=== PATIENT | male | born 1955 | race Caucasian/White ===

== ENCOUNTER 2016-12-16 08:47 | Outpatient (CLI) | payer OTHER ==
[2016-12-16] MEDS ORDERED: Iopamidol 370 76% 100 ML VIAL ONE (09:00)
--- NOTE | 2016-12-16 10:57 | CT ---
CT OF THE ABDOMEN ND PELVIS WITHOUT AND WITH CONTRAST: COMPARISON: None. HISTORY: Prostate cancer. Microhematuria. TECHNIQUE: Multiple contiguous axial images were obtained in a CTA of the abdomen and pelvis without and with I V contrast. Postcontrast images were obtained in the nephrographic and excretory phases. Coronal r eformats were performed. FINDINGS: There are subcentimeter hypodensities in the right kidney and liver which are too small to definitel y characterize but likely represent cysts. The gallbladder, left kidney, adrenal glands, spleen, an d pancreas are unremarkable. Both urinary collecting systems are normal in appearance without filli ng defects. The urinary bladder is unremarkable. The prostate is mildly enlarged. No calcificatio ns are seen in either kidney or along the course of the ureters. No free air, free fluid, or stranding changes are seen in the abdomen or pelvis. There are a few sc attered diverticula in the colon. The small bowel and appendix are unremarkable. No abdominal or p elvic lymphadenopathy are seen. The osseous structures and visualized pneumothorax are unremarkable. The abdominal wall soft tissue s are unremarkable. IMPRESSION: 1. No evidence of acute intraabdominal/pelvic abnormality. 2. Hepatic and right renal cysts. 3. Diverticulosis. POS: [facility]
== END 2016-12-16 08:48 | disposition home or self-care (01) ==
LOC: SCSCT 08:47
PROVIDERS: ATTEND Urology
DX: C61 Malignant neoplasm of prostate (principal); R31.29 Other microscopic hematuria; K76.89 Other specified diseases of liver; N28.1 Cyst of kidney, acquired; K57.90 Diverticulosis of intestine, part unspecified, without perforation or abscess without bleeding
CPT/HCPCS: 74178

== ENCOUNTER 2019-01-29 17:30 | Outpatient (CLI) | payer OTHER | END 2019-01-29 17:31 | disposition home or self-care (01) | LOC: SLEEPLAB 17:30 | PROVIDERS: ATTEND Family Medicine | DX: G47.33 Obstructive sleep apnea (adult) (pediatric) (principal); R53.83 Other fatigue; R40.0 Somnolence; R09.89 Other specified symptoms and signs involving the circulatory and respiratory systems; I10 Essential (primary) hypertension; R06.83 Snoring | CPT/HCPCS: 95806 ==

== ENCOUNTER 2025-02-13 09:00 | Emergency (ER) | payer MEDICARE ==
[2025-02-13 09:36] LABS: #Basophils Less than 0.03 10x3/uL (0.0-0.2); #Eosinophils Less than 0.03 10x3/uL (0.0-0.7); #Monocytes 0.42 10x3/uL (0.11-0.59); #Neutrophils 9.59 10x3/uL (1.40-6.50); %Basophils 0.1 % (0.0-1.0); %Eosinophils 0.0 % (0.0-10.0); %Lymphocytes 2.8 % (21.0-51.0); %Monocytes 4.1 % (0.0-10.0); %Neutrophils 92.8 % (42.0-75.0); Hematocrit 45.8 % (42.0-52.0); Hemoglobin 15.9 g/dL (14.0-18.0); Mean Corpuscular Hemoglobin 32.4 pg (27.0-31.0); Mean Corpuscular Volume 93.5 fL (78.0-98.0); Platelet Count 206 10x3/uL (130-400); Red Blood Cell (RBC) Count 4.90 mill/uL (4.70-6.10); White Blood Cell (WBC) Count 10.33 10x3/uL (4.8-10.8)
[2025-02-13 09:56] LABS: ALT (SGPT) 22 U/L (Less than 45); AST (SGOT) 28 U/L (11-34); Albumin 4.3 g/dL (3.1-4.5); Alkaline Phosphatase 69 U/L (40-110); Anion Gap 14 mmol/L (10-20); BUN (Urea Nitrogen) 15 mg/dL (8.4-25.7); Bilirubin, Total 1.3 mg/dL (0.3-1.2); CK (CPK) 52 U/L (30-200); Calc. Creatinine Clearance 0 mL/min (70-130); Calcium 9.0 mg/dL (7.8-10.44); Carbon Dioxide 25 mmol/L (23-31); Chloride 106 mmol/L (98-107); Globulin 3.1 g/dL (2.4-3.5); Glucose 120 mg/dL (80-115); Potassium 3.8 mmol/L (3.5-5.1); Sodium 141 mmol/L (136-145)
[2025-02-13] MEDS ORDERED: Mag-Al 1200 mg/1200 mg/30 ML UDCUP ONE (10:56)
[2025-02-13] MEDS ORDERED: Aspirin Chewable 81 MG TAB ONE (10:56)
[2025-02-13] MEDS ORDERED: Lidocaine Viscous Sol 2% 15 ml UD Cup ONE (10:56)
== END 2025-02-13 12:26 | disposition home or self-care (01) ==
LOC: ERS 09:00
DX: R07.89 Other chest pain (principal); K21.9 Gastro-esophageal reflux disease without esophagitis; I10 Essential (primary) hypertension; Z79.899 Other long term (current) drug therapy
CPT/HCPCS: 71045; 80053; 82550; 84484; 85025; 93005